=== PATIENT | male | born 1955 | race Caucasian/White ===

== ENCOUNTER 2018-03-08 18:31 | Inpatient (IN) | payer OTHER ==
[2018-03-08] MEDS ORDERED: SODIUM CHLORIDE 0.9% 1,000 ML IV STA (18:38)
[2018-03-08 18:59] LABS: Basophils # (A) 0.1 k/uL (0-0.2); Basophils % (A) 1 %; Eosinophils # (A) 0.3 k/uL (0-0.7); Eosinophils % (A) 3 %; HCT 38.3 % (39.0-53.0); Lymphocytes # (A) 3.8 k/uL (1.0-4.8); Lymphocytes % (A) 36 %; MCH 31.1 pg (25.0-35.0); MCHC 33.8 g/dL (31.0-37.0); Mean Platelet Volume 6.8; Monocytes # (A) 0.8 k/uL (0-1.0); Monocytes % (A) 7 %; Neutrophils # (A) 5.3 k/uL (1.3-7.7); Neutrophils % (A) 50 %; Platelet Count 291 k/uL (150-450); RBC 4.17 m/uL (4.30-5.90); RDW 12.8 % (11.5-15.5); WBC 10.7 k/uL (3.8-10.6)
--- NOTE | 2018-03-08 19:01 | CT ---
EXAMINATION TYPE: CT brain wo con for TPA DATE OF EXAM: 03/08/2018 COMPARISON: None HISTORY: Left sided numbness earlier today. CT DLP: 866.3 mGycm Automated exposure control for dose reduction was used. FINDINGS: Ventricles and sulci appear normal. There is no mass effect nor midline shift. There is no sign of in tracranial hemorrhage. Calvarium is intact. There is mucosal thickening in the ethmoid air cells. IMPRESSION: NEGATIVE CT SCAN OF THE BRAIN. MILD ETHMOID SINUSITIS.
[2018-03-08 19:03] LABS: ALT 19 U/L (21-72); AST 23 U/L (17-59); Alkaline Phosphatase 62 U/L (38-126); Anion Gap 12 mmol/L; Blood Urea Nitrogen 17 mg/dL (9-20); Calcium 8.5 mg/dL (8.4-10.2); Carbon Dioxide 25 mmol/L (22-30); Chloride 97 mmol/L (98-107); Glucose 123 mg/dL (74-99); Potassium 3.7 mmol/L (3.5-5.1); Sodium 134 mmol/L (137-145); Total Bilirubin 0.4 mg/dL (0.2-1.3); Total Protein 6.8 g/dL (6.3-8.2)
[2018-03-08 19:04] LABS: Partial Thromboplastin Time 24.4 sec (22.0-30.0); Prothrombin Time 9.9 sec (9.0-12.0)
--- NOTE | 2018-03-08 19:11 | ED ---
General Adult HPI - General Chief complaint: Neuro Symptoms/Deficit Stated complaint: CVA Symptoms Time Seen by Provider: 03/08/18 18:37 Source: patient, EMS, RN notes reviewed Mode of arrival: EMS Limitations: no limitations - History of Present Illness Initial comments: Patient is a pleasant 62-year-old male presenting to the emergency department with concern for possible stroke. Patient has had some right arm numbness for a couple of days, more so today. Patient did have an episode of right arm weakness the last around 20 minutes earlier. Approximately 5:30 patient did have problems with speech. Patient states his speech has improved however is not white on a percent normal at this time. Patient also had some paresthesias of the right face. No confusion. No facial weakness noted. No leg weakness noted. No history of similar symptoms previously. - Related Data Home Medications Medication Instructions Recorded Confirmed Gabapentin [Neurontin] 300 mg PO TID 03/08/18 03/08/18 Hydrocodone/Acetaminophen [[place] 1 tab PO QID PRN 03/08/18 03/08/18 7.5-325] Lisinopril [Prinivil] 20 mg PO DAILY 03/08/18 03/08/18 Allergies Allergy/AdvReac Type Severity Reaction Status Date / Time No Known Allergies Allergy Verified 03/08/18 20:02 Review of Systems ROS Statement: Those systems with pertinent positive or pertinent negative responses have been documented in the HPI. ROS Other: All systems not noted in ROS Statement are negative. Constitutional: Denies: fever Eyes: Denies: eye pain ENT: Denies: ear pain Respiratory: Denies: cough Cardiovascular: Denies: chest pain Endocrine: Denies: fatigue Gastrointestinal: Denies: abdominal pain Genitourinary: Denies: dysuria Musculoskeletal: Denies: back pain Skin: Denies: rash Neurological: Reports: weakness (Resolved), paresthesias. Denies: confusion Past Medical History Past Medical History: Hypertension History of Any Multi-Drug Resistant Organisms: None Reported Past Surgical History: Hernia Repair Past Psychological History: No Psychological Hx Reported Smoking Status: Heavy tobacco smoker Past Alcohol Use History: Rare Past Drug Use History: None Reported General Exam Limitations: no limitations General appearance: alert, in no apparent distress Head exam: Present: atraumatic Eye exam: Present: normal appearance, PERRL, EOMI. Absent: nystagmus ENT exam: Present: normal oropharynx Neck exam: Present: normal inspection Respiratory exam: Present: normal lung sounds bilaterally Cardiovascular Exam: Present: regular rate, normal rhythm GI/Abdominal exam: Present: soft. Absent: tenderness Extremities exam: Present: normal inspection. Absent: pedal edema, calf tenderness Neurological exam: Present: alert, oriented X3, CN II-XII intact, other ( Minimal amount of slurred speech is noted). Absent: motor sensory deficit Expanded Neurological exam: Present: protecting the airway Patient oriented to: Present: person, place, time Speech: Present: fluid speech Cranial nerves: EOM's Intact: Normal, Facial Sensation: Normal Sensory exam: Upper Extremity Light Touch: Normal, Lower Extremity Light Touch: Normal Motor strength exam: RUE: 5, LUE: 5, RLE: 5, LLE: 5 Eye Response: (4) open spontaneously Motor Response: (6) obeys commands Verbal Response: (5) oriented Psychiatric exam: Present: normal affect, normal mood Skin exam: Present: normal color Course Vital Signs 03/08/18 03/08/18 03/08/18 18:31 18:45 19:00 Temperature Pulse Rate 98 84 76 Respiratory 16 16 16 Rate Blood Pressure 174/94 178/92 180/90 O2 Sat by Pulse 96 97 96 Oximetry 03/08/18 03/08/18 03/08/18 19:15 19:30 19:45 Temperature Pulse Rate 74 69 77 Respiratory 16 16 18 Rate Blood Pressure 185/82 185/82 185/78 O2 Sat by Pulse 99 98 98 Oximetry 03/08/18 03/08/18 20:00 20:30 Temperature 97.8 F Pulse Rate 84 85 Respiratory 16 16 Rate Blood Pressure 148/82 160/78 O2 Sat by Pulse 98 98 Oximetry EKG Findings - EKG Comments: EKG Findings:: Normal sinus rhythm 79. [place] 154. QRS 98. QT 412. QTC 472. Normal axis. Normal QRS. No acute ST change. Medical Decision Making - Medical Decision Making Neural interventional list had called back and spoke with nurse previously who recommended patient not have TPA which I do agree with secondary to symptoms essentially resolved except for questionable minimal speech problem. She did recommend aspirin and Lipitor. I did have nurse call him back again to review CTA. Case was discussed with Dr. Dela Cruz, who will admit for hospital call. - Lab Data Result diagrams: 03/08/18 18:35 03/08/18 18:35 Lab Results 03/08/18 03/08/18 03/08/18 Range/Units 18:35 18:35 18:35 WBC 10.7 H (3.8-10.6) k/uL RBC 4.17 L (4.30-5.90) m/uL Hgb 13.0 (13.0-17.5) gm/dL Hct 38.3 L (39.0-53.0) % MCV 92.0 (80.0-100.0) fL MCH 31.1 (25.0-35.0) pg MCHC 33.8 (31.0-37.0) g/dL RDW 12.8 (11.5-15.5) % Plt Count 291 (150-450) k/uL Neutrophils % 50 % Lymphocytes % 36 % Monocytes % 7 % Eosinophils % 3 % Basophils % 1 % Neutrophils # 5.3 (1.3-7.7) k/uL Lymphocytes # 3.8 (1.0-4.8) k/uL Monocytes # 0.8 (0-1.0) k/uL Eosinophils # 0.3 (0-0.7) k/uL Basophils # 0.1 (0-0.2) k/uL PT (9.0-12.0) sec INR (<1.2) APTT (22.0-30.0) sec Sodium 134 L (137-145) mmol/L Potassium 3.7 (3.5-5.1) mmol/L Chloride 97 L (98-107) mmol/L Carbon Dioxide 25 (22-30) mmol/L Anion Gap 12 mmol/L BUN 17 (9-20) mg/dL Creatinine 0.78 (0.66-1.25) mg/dL Est GFR (CKD-EPI)AfAm >90 (>60 ml/min/1.73 sqM) Est GFR (CKD-EPI)NonAf >90 (>60 ml/min/1.73 sqM) Glucose 123 H (74-99) mg/dL Calcium 8.5 (8.4-10.2) mg/dL Total Bilirubin 0.4 (0.2-1.3) mg/dL AST 23 (17-59) U/L ALT 19 L (21-72) U/L Alkaline Phosphatase 62 (38-126) U/L Total Creatine Kinase 97 (55-170) U/L CK-MB (CK-2) 1.3 (0.0-2.4) ng/mL CK-MB (CK-2) Rel Index 1.3 Troponin I <0.012 (0.000-0.034) ng/mL Total Protein 6.8 (6.3-8.2) g/dL Albumin 4.0 (3.5-5.0) g/dL 03/08/18 Range/Units 18:35 WBC (3.8-10.6) k/uL RBC (4.30-5.90) m/uL Hgb (13.0-17.5) gm/dL Hct (39.0-53.0) % MCV (80.0-100.0) fL MCH (25.0-35.0) pg MCHC (31.0-37.0) g/dL RDW (11.5-15.5) % Plt Count (150-450) k/uL Neutrophils % % Lymphocytes % % Monocytes % % Eosinophils % % Basophils % % Neutrophils # (1.3-7.7) k/uL Lymphocytes # (1.0-4.8) k/uL Monocytes # (0-1.0) k/uL Eosinophils # (0-0.7) k/uL Basophils # (0-0.2) k/uL PT 9.9 (9.0-12.0) sec INR 1.0 (<1.2) APTT 24.4 (22.0-30.0) sec Sodium (137-145) mmol/L Potassium (3.5-5.1) mmol/L Chloride (98-107) mmol/L Carbon Dioxide (22-30) mmol/L Anion Gap mmol/L BUN (9-20) mg/dL Creatinine (0.66-1.25) mg/dL Est GFR (CKD-EPI)AfAm (>60 ml/min/1.73 sqM) Est GFR (CKD-EPI)NonAf (>60 ml/min/1.73 sqM) Glucose (74-99) mg/dL Calcium (8.4-10.2) mg/dL Total Bilirubin (0.2-1.3) mg/dL AST (17-59) U/L ALT (21-72) U/L Alkaline Phosphatase (38-126) U/L Total Creatine Kinase (55-170) U/L CK-MB (CK-2) (0.0-2.4) ng/mL CK-MB (CK-2) Rel Index Troponin I (0.000-0.034) ng/mL Total Protein (6.3-8.2) g/dL Albumin (3.5-5.0) g/dL - Radiology Data Radiology results: report reviewed (Computed tomography scan of the brain shows no acute process. CT angios does have some concern for occlusion of the internal carotid arteries bilaterally also right common carotid artery. There is some low present, apparently from vertebral basilar artery system. Large collection of vessels left posterior parietal lobe consistent with AV malformation.), image reviewed (Chest x-ray shows mild fibrosis.) Disposition Clinical Impression: Cerebrovascular accident Disposition: ADMITTED IP TO THIS [facility] Condition: Serious Is patient prescribed a controlled substance at d/c from ED?: No Referrals: Nonstaff,Physician [REFERRING] - 1-2 days Decision Time: 20:56
[2018-03-08 19:16] LABS: Creatine Kinase 97 U/L (55-170)
--- NOTE | 2018-03-08 19:28 | CT ---
EXAMINATION TYPE: CT angio head neck DATE OF EXAM: 03/08/2018 HISTORY: Left side numbness. COMPARISON: None CT DLP: 251.3 mGycm. Automated Exposure Control for Dose Reduction was Utilized. TECHNIQUE: CTA scan of the neck is performed with IV Contrast, patient injected with 65ml mL of Isov ue 370, axial images are obtained, coronal and sagittal reformatted images are reviewed. Three-D enrique nstructed images are created on an independent workstation and reviewed. FINDINGS: There is normal branching pattern of the great vessels on the aortic arch. There is complete occlusio n of the right common carotid artery at its origin. There is arterial flow in the left common carotid artery. There is complete occlusion of the left int ernal carotid artery at its origin. There is arterial contrast opacification of the external carotid arteries bilaterally. There is arterial flow in the distal intracranial internal carotid arteries. Th ere is arterial flow in both vertebral arteries and the basilar artery. I see no flow in the distal r ight internal carotid artery. There is very little contrast in the distal left internal carotid arter y. This is probably filling in retrograde fashion. There is arterial flow in the anterior middle and posterior cerebral arteries bilaterally. There is a rterial flow in the vertebrobasilar artery system. There appears to be bilateral arterial flow in the posterior communicating arteries. There is normal contrast opacification of the venous sinuses. There are multiple serpiginous vessels in the left posterior parietal lobe. This abnormality measures 7 x 3 cm. 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 There is arterial flow intracranially apparently from the vertebrobasilar artery system o nly and through the posterior communicating arteries. Atherosclerotic vascular disease. There is a large collection of serpiginous vessels in the left posterior parietal lobe consistent wit h large arterial venous malformation. IMPRESSION: No significant abnormality is seen.
[2018-03-08 19:30] LABS: Creatine Kinase MB 1.3 ng/mL (0.0-2.4); Troponin I <0.012 ng/mL (0.000-0.034)
--- NOTE | 2018-03-08 19:57 | XR ---
EXAMINATION TYPE: XR chest 1V portable DATE OF EXAM: 03/08/2018 COMPARISON: NONE HISTORY: Numbness and tingling TECHNIQUE: Single frontal view of the chest is obtained. FINDINGS: There is no heart failure nor confluent pneumonic infiltrate. Costophrenic angles are yoan r. There are chest leads. Thoracic aorta is atheromatous. There is slight coarsening of interstitial markings. IMPRESSION: Mild pulmonary fibrosis. Normal heart.
[2018-03-08] MEDS ORDERED: ASPIRIN 81 MG PO STA (20:37)
[2018-03-08] MEDS ORDERED: ATORVASTATIN 80 MG TAB PO STA (20:38)
[2018-03-08] MEDS ORDERED: ASPIRIN 325 MG TAB PO STA (20:57)
[2018-03-08] MEDS ORDERED: SODIUM CHLORIDE 0.9% 1,000 ML IV SCH (21:00)
[2018-03-08 22:54] VITALS: BMI 22.6
[2018-03-09] MEDS ORDERED: levETIRAcetam 500 MG TAB PO STA (00:22)
[2018-03-09 00:39] VITALS: RESP 18
[2018-03-09 00:48] VITALS: BP 167/78; PULSE 67; TEMP 97.9
[2018-03-09] MEDS ORDERED: levETIRAcetam 500 MG TAB PO SCH (09:00)
[2018-03-09] MEDS ORDERED: ASPIRIN 325 MG TAB PO SCH (12:00)
[2018-03-09] MEDS ORDERED: ATORVASTATIN 80 MG TAB PO SCH (21:00)
--- NOTE | 2018-04-02 22:25 | P.HPIM ---
History of Present Illness H&P Date: 03/08/18 Chief Complaint: Right arm numbness and weakness Patient was admitted to the hospital with complaints of right arm numbness and weakness. CT head is negative. CTA SHOWED COMPLETE RONEL CAROTID OCCLUSION ALONG WITH A LARGE AVM. PT'S NIH AT TIME OF ADMISSION IS A 3. PT HAVING APHASIA, VISUAL DISTURBANCES AND R ARM TINGLING. [facility] INTERVENTIONAL NEUROLOGIST DR. HUMPHREY WAS NOTIFIED AND HE READ CTA AND ORDERED PT TO BE SENT TO [facility] FOR FURTHER TESTING. PO KEPPRA WAS ORDERED ALONG WITH IV FLUIDS TO KEEP HIS BP BETWEEN 140-200. Past Medical History Past Medical History: Hypertension Additional Past Medical History / Comment(s): CHRONIC BACK PAIN History of Any Multi-Drug Resistant Organisms: None Reported Past Surgical History: Hernia Repair Past Psychological History: No Psychological Hx Reported Smoking Status: Heavy tobacco smoker Past Alcohol Use History: Rare Past Drug Use History: None Reported - Past Family History Mother Family Medical History: No Reported History Father Family Medical History: COPD Medications and Allergies Home Medications Medication Instructions Recorded Confirmed Type Gabapentin [Neurontin] 300 mg PO TID 03/08/18 03/08/18 History Hydrocodone/Acetaminophen [[place] 1 tab PO QID PRN 03/08/18 03/08/18 History 7.5-325] Lisinopril [Prinivil] 20 mg PO DAILY 03/08/18 03/08/18 History Allergies Allergy/AdvReac Type Severity Reaction Status Date / Time No Known Allergies Allergy Verified 03/08/18 20:02 Results CBC & Chem 7: 03/08/18 18:35 03/08/18 18:35 Thrombosis Risk Factor Assmnt - Choose All That Apply Each Risk Factor Represents 2 Points: Age 61-74 years Each Risk Factor Represents 5 Points: Stroke (< 1 month) Thrombosis Risk Factor Assessment Total Risk Factor Score: 7 Thrombosis Risk Factor Assessment Level: High Risk
--- NOTE | 2018-04-02 22:25 | P.DS ---
Providers Date of admission: 03/08/18 20:57 Expected date of discharge: 03/09/18 Attending physician: Eryn Dela Cruz Consults: 03/08/18 20:58 Consult Physician Urgent Consulting Provider: Mary Hodgson Consult Reason/Comments: cva Do you want consulting provider notified?: Yes Primary care physician: Nereyda Colunga [facility] Course: Patient was admitted to the hospital with complaints of right arm numbness and weakness. CT head is negative. CTA SHOWED COMPLETE RONEL CAROTID OCCLUSION ALONG WITH A LARGE AVM. PT'S NIH AT TIME OF ADMISSION IS A 3. PT HAVING APHASIA, VISUAL DISTURBANCES AND R ARM TINGLING. [facility] INTERVENTIONAL NEUROLOGIST DR. HUMPHREY WAS NOTIFIED AND HE READ CTA AND ORDERED PT TO BE SENT TO [facility] FOR FURTHER TESTING. PO KEPPRA WAS ORDERED ALONG WITH IV FLUIDS TO KEEP HIS BP BETWEEN 140-200. Patient Condition at Discharge: Serious Plan - Discharge Summary New Discharge Prescriptions: No Action Gabapentin [Neurontin] 300 mg PO TID Lisinopril [Prinivil] 20 mg PO DAILY Hydrocodone/Acetaminophen [[place] 7.5-325] 1 tab PO QID PRN PRN Reason: Pain Discharge Medication List Gabapentin [Neurontin] 300 mg PO TID 03/08/18 [History] Hydrocodone/Acetaminophen [[place] 7.5-325] 1 tab PO QID PRN 03/08/18 [History] Lisinopril [Prinivil] 20 mg PO DAILY 03/08/18 [History] Follow up Appointment(s)/Referral(s): Nonstaff,Physician [REFERRING] - 1-2 days Discharge Disposition: TRANSFER TO SHORT TERM HOSP
== END 2018-03-09 05:56 | disposition short-term general hospital (02) | DRG 67 ==
LOC: EC 18:31 → 6SEL 20:57
PROVIDERS: ADMIT Internal Medicine; ATTEND Internal Medicine
DX: I65.23 Occlusion and stenosis of bilateral carotid arteries (principal); Q28.2 Arteriovenous malformation of cerebral vessels; R40.2362 Coma scale, best motor response, obeys commands, at arrival to emergency department; R40.2142 Coma scale, eyes open, spontaneous, at arrival to emergency department; R40.2252 Coma scale, best verbal response, oriented, at arrival to emergency department; F17.210 Nicotine dependence, cigarettes, uncomplicated; I10 Essential (primary) hypertension; I69.931 Monoplegia of upper limb following unspecified cerebrovascular disease affecting right dominant side; R47.9 Unspecified speech disturbances
CPT/HCPCS: 36415; 70450; 70496; 70498; 71045; 80053; 82550; 82553; 84484; 85025; 85610; 85730; 93005; 96360; 96361; 99285

== ENCOUNTER 2018-04-15 22:48 | Emergency (ER) | payer OTHER ==
[2018-04-15] MEDS ORDERED: SODIUM CHLORIDE 0.9% 1,000 ML IV STA (23:20)
[2018-04-15 23:30] LABS: Basophils # (A) 0.1 k/uL (0-0.2); Basophils % (A) 0 %; Eosinophils # (A) 0.3 k/uL (0-0.7); Eosinophils % (A) 2 %; HCT 41.2 % (39.0-53.0); HGB 13.6 gm/dL (13.0-17.5); Lymphocytes % (A) 29 %; MCH 31.2 pg (25.0-35.0); MCHC 33.1 g/dL (31.0-37.0); MCV 94.5 fL (80.0-100.0); Mean Platelet Volume 7.3; Monocytes # (A) 0.7 k/uL (0-1.0); Monocytes % (A) 5 %; Neutrophils # (A) 8.3 k/uL (1.3-7.7); Neutrophils % (A) 61 %; Platelet Count 279 k/uL (150-450); RBC 4.36 m/uL (4.30-5.90); RDW 12.8 % (11.5-15.5); WBC 13.7 k/uL (3.8-10.6)
[2018-04-15 23:40] LABS: ALT 19 U/L (21-72); AST 20 U/L (17-59); Albumin 4.6 g/dL (3.5-5.0); Alkaline Phosphatase 57 U/L (38-126); Anion Gap 10 mmol/L; Blood Urea Nitrogen 14 mg/dL (9-20); Calcium 9.6 mg/dL (8.4-10.2); Carbon Dioxide 26 mmol/L (22-30); Chloride 104 mmol/L (98-107); Glucose 127 mg/dL (74-99); Potassium 3.8 mmol/L (3.5-5.1); Sodium 140 mmol/L (137-145); Total Bilirubin 0.2 mg/dL (0.2-1.3); Total Protein 7.6 g/dL (6.3-8.2)
--- NOTE | 2018-04-15 23:53 | XR ---
EXAMINATION TYPE: XR chest 2V DATE OF EXAM: 04/15/2018 COMPARISON: 03/08/2018 HISTORY: Altered mental status TECHNIQUE: Frontal and lateral views of the chest are obtained. FINDINGS: Heart and mediastinum are within normal limits. Lungs are clear of infiltrate. Diaphragm i s normal. There are chest leads. Bony thorax is intact. Pulmonary vascularity is normal. IMPRESSION: No active cardiopulmonary disease. Normal heart. There is clearing of mild interstitial infiltrates in the lower lobes compared to last exam.
[2018-04-16 00:09] LABS: Partial Thromboplastin Time 24.7 sec (22.0-30.0); Prothrombin Time 10.1 sec (9.0-12.0)
--- NOTE | 2018-04-16 00:11 | CT ---
EXAMINATION TYPE: CT brain wo con DATE OF EXAM: 04/16/2018 COMPARISON: 03/08/[address] scan of the brain. HISTORY: neuro deficits CT DLP: 1100 mGycm Automated exposure control for dose reduction was used. FINDINGS: There is some minimal punctate calcification in the left posterior parietal lobe consistent with moncho rial venous vascular malformation. There are a few prominent serpiginous type densities in the left p osterior parietal lobe convexity consistent with vascular malformation. There is no midline shift. Th ere is no sign of intracranial hemorrhage. 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 NO CHANGE COMPARED TO LAST EXAM. NO EVIDENCE OF CORTICAL INFARCT.
--- NOTE | 2018-04-16 00:22 | CT ---
EXAMINATION TYPE: CT angio head neck DATE OF EXAM: 04/16/2018 HISTORY: neuro deficits COMPARISON: 03/08/2018 CT DLP: 432.9 mGycm. Automated Exposure Control for Dose Reduction was Utilized. TECHNIQUE: CTA scan of the neck is performed with IV Contrast, patient injected with 65mL mL of Isov ue 370, axial images are obtained, coronal and sagittal reformatted images are reviewed. Three-D enrique nstructed images are created on an independent workstation and reviewed. FINDINGS: There is normal branching pattern of the great vessels on the aortic arch. There is bilateral arteria l flow in the vertebral arteries which are symmetric. There is arterial flow in the vertebrobasilar a rtery system. There is arterial flow in the left common carotid artery and the bifurcation. There is complete occlu panda proximal left internal carotid artery at the bifurcation. There is patency of the left external carotid artery. There is arterial flow in the right external carotid artery. I do not see any signifi cant flow in the right common carotid artery. There is no evidence of arterial flow in the entire rig ht internal carotid artery. There is arterial flow in the posterior communicating arteries bilaterall y. There is a 7 x 3 X 3 cm area of tortuous vessels at the left posterior parietal lobe convexity con sistent with large arteriovenous malformation. There is no midline shift. There is no sign of intracr anial hemorrhage. There is no evidence of intracranial arterial stenosis. There is no arterial flow d emonstrated in the intracranial internal carotid arteries. There is arterial flow in the anterior middle and posterior cerebral arteries. The left middle cerebral artery is larger than the right and consistent with increased flow due to th e vascular malformation. 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 There is bilateral occlusions of the internal carotid arteries. The anterior middle and posterior cer ebral arteries fill entirely through the vertebrobasilar artery system. This appears unchanged compar ed to old exam..
--- NOTE | 2018-04-16 01:11 | ED ---
General Adult HPI - General Chief complaint: Neuro Symptoms/Deficit Stated complaint: Numbness/Hypertension Time Seen by Provider: 04/15/18 23:02 Source: patient, family Mode of arrival: ambulatory Limitations: no limitations - History of Present Illness Initial comments: Patient is a 62-year-old male presenting for right arm numbness. Patient states that approximately one month ago, he was diagnosed with the AVM and at that time, he had right arm numbness which radiated all the way up to his neck and he had some vision changes. He states that 1.5 hours prior to arrival, he had some hand numbness on the right hand specifically on digits 3 through 5 and on the backside of his hand. He states that the symptoms resolved and at that time, he was also hypertensive at 202/90. He admitted to some palpitations but denied any headache or vision changes. He states that all his symptoms have resolved but he is very concerned because he was supposed to follow-up with [facility] after being transferred to the [facility]. He has been unable to do so secondary to [facility] problems [facility] - Related Data Home Medications Medication Instructions Recorded Confirmed Gabapentin [Neurontin] 300 mg PO TID 03/08/18 03/08/18 Hydrocodone/Acetaminophen [[place] 1 tab PO QID PRN 03/08/18 03/08/18 7.5-325] Lisinopril [Prinivil] 20 mg PO DAILY 03/08/18 03/08/18 Allergies Allergy/AdvReac Type Severity Reaction Status Date / Time No Known Allergies Allergy Verified 04/15/18 23:07 Review of Systems ROS Statement: Those systems with pertinent positive or pertinent negative responses have been documented in the HPI. Constitutional: Negative for chills, fatigue and fever. HENT: Negative for congestion. Respiratory: Negative for chest tightness, shortness of breath and wheezing. Negative for cough Cardiovascular: Negative for chest pain and positive for palpitations. Gastrointestinal: Negative for abdominal pain. Negative for abdominal distention , diarrhea, nausea and vomiting. Genitourinary: Negative for dysuria. Musculoskeletal: Negative for back pain, neck pain and neck stiffness. Skin: Negative for color change. Neurological: Negative for dizziness, speech difficulty, weakness and light- headedness. Positive for right hand numbness Psychiatric/Behavioral: Negative for agitation and confusion. Negative for anxiety ROS Other: All systems not noted in ROS Statement are negative. Past Medical History Past Medical History: CVA/TIA, Hypertension Additional Past Medical History / Comment(s): CHRONIC BACK PAIN History of Any Multi-Drug Resistant Organisms: None Reported Past Surgical History: Hernia Repair Past Psychological History: No Psychological Hx Reported Smoking Status: Heavy tobacco smoker Past Alcohol Use History: Rare Past Drug Use History: None Reported - Past Family History Mother Family Medical History: No Reported History Father Family Medical History: COPD General Exam - General Exam Comments Initial Comments: Constitutional: Pt is oriented to person, place, and time. Pt appears well- developed and well-nourished. No distress. HENT: Head: Normocephalic and atraumatic. Eyes: EOM are normal. Pupils 3 mm bilaterally and reactive. Neck: Normal range of motion. Neck supple. Cardiovascular: Normal rate, regular rhythm, S1 normal, S2 normal and normal heart sounds. Exam reveals no gallop and no friction rub. No murmur heard. Pulmonary/Chest: Effort normal and breath sounds normal. No tachypnea and no bradypnea. No respiratory distress. No wheezes or rales noted. Abdominal: Soft. Bowel sounds are normal. Pt exhibits no shifting dullness, no distension, no pulsatile liver, no fluid wave, no abdominal bruit and no ascites. There is no tenderness. There is no rigidity, no rebound, no guarding, no tenderness at McBurney's point and negative Yepez's sign. Musculoskeletal: Normal range of motion. Neurological: Pt is alert and oriented to person, place, and time. No cranial nerve deficit. No neurosensory deficits on the right hand. No signs of ataxia. All strength 5 out of 5 in all extremities. Skin: Skin is warm and dry. No rash noted. Pt is not diaphoretic. No erythema. No pallor. Psychiatric: Pt has a normal mood and affect. Pt behavior is normal. Thought content normal. Limitations: no limitations Course Vital Signs 04/15/18 04/16/18 22:55 00:03 Temperature 98.5 F Pulse Rate 80 68 Respiratory 18 16 Rate Blood Pressure 186/84 159/91 O2 Sat by Pulse 96 97 Oximetry EKG Findings - EKG Comments: EKG Findings:: EKG shows sinus rhythm of 70 bpm, WI interval 154, QRS 102, QTC 444 there are no significant ST depressions or elevations. Medical Decision Making - Medical Decision Making Laboratory studies showed that there was mild leukocytosis at 13.7 but there is no obvious source of infection. Electrolytes were relatively within normal limits and from a cardiac standpoint, EKG showed no emergent findings. Troponin was also noted to be negative and CTA was performed and it showed the large left posterior AVM as well as bilateral internal carotid occlusions both of which were present for roughly 1 month ago. Case is discussed with neurology and it was recommended that the patient be transferred to an outside facility for escalation of care as we do not have vascular surgeons and house that could intervene if emergent situation occurred overnight. Because the patient was ultimately referred to [facility] from the [facility], it was advised to the patient that he should go by EMS to this facility which have the subspecialist needed. Patient was agreeable to plan and case was discussed with [facility] physician, Dr. Doherty, who accepted the patient transfer. At the time of disposition, the patient was not hypertensive and had no neurologic symptoms. - Lab Data Result diagrams: 04/15/18 23:01 04/15/18 23:01 Lab Results 04/15/18 04/15/18 04/15/18 Range/Units 23:01 23:01 23:01 WBC 13.7 H (3.8-10.6) k/uL RBC 4.36 (4.30-5.90) m/uL Hgb 13.6 (13.0-17.5) gm/dL Hct 41.2 (39.0-53.0) % MCV 94.5 (80.0-100.0) fL MCH 31.2 (25.0-35.0) pg MCHC 33.1 (31.0-37.0) g/dL RDW 12.8 (11.5-15.5) % Plt Count 279 (150-450) k/uL Neutrophils % 61 % Lymphocytes % 29 % Monocytes % 5 % Eosinophils % 2 % Basophils % 0 % Neutrophils # 8.3 H (1.3-7.7) k/uL Lymphocytes # 4.0 (1.0-4.8) k/uL Monocytes # 0.7 (0-1.0) k/uL Eosinophils # 0.3 (0-0.7) k/uL Basophils # 0.1 (0-0.2) k/uL PT 10.1 (9.0-12.0) sec INR 1.0 (<1.2) APTT 24.7 (22.0-30.0) sec Sodium 140 (137-145) mmol/L Potassium 3.8 (3.5-5.1) mmol/L Chloride 104 (98-107) mmol/L Carbon Dioxide 26 (22-30) mmol/L Anion Gap 10 mmol/L BUN 14 (9-20) mg/dL Creatinine 0.65 L (0.66-1.25) mg/dL Est GFR (CKD-EPI)AfAm >90 (>60 ml/min/1.73 sqM) Est GFR (CKD-EPI)NonAf >90 (>60 ml/min/1.73 sqM) Glucose 127 H (74-99) mg/dL Calcium 9.6 (8.4-10.2) mg/dL Total Bilirubin 0.2 (0.2-1.3) mg/dL AST 20 (17-59) U/L ALT 19 L (21-72) U/L Alkaline Phosphatase 57 (38-126) U/L Troponin I (0.000-0.034) ng/mL Total Protein 7.6 (6.3-8.2) g/dL Albumin 4.6 (3.5-5.0) g/dL 04/15/ Range/Units 23:01 WBC (3.8-10.6) k/uL RBC (4.30-5.90) m/uL Hgb (13.0-17.5) gm/dL Hct (39.0-53.0) % MCV (80.0-100.0) fL MCH (25.0-35.0) pg MCHC (31.0-37.0) g/dL RDW (11.5-15.5) % Plt Count (150-450) k/uL Neutrophils % % Lymphocytes % % Monocytes % % Eosinophils % % Basophils % % Neutrophils # (1.3-7.7) k/uL Lymphocytes # (1.0-4.8) k/uL Monocytes # (0-1.0) k/uL Eosinophils # (0-0.7) k/uL Basophils # (0-0.2) k/uL PT (9.0-12.0) sec INR (<1.2) APTT (22.0-30.0) sec Sodium (137-145) mmol/L Potassium (3.5-5.1) mmol/L Chloride (98-107) mmol/L Carbon Dioxide (22-30) mmol/L Anion Gap mmol/L BUN (9-20) mg/dL Creatinine (0.66-1.25) mg/dL Est GFR (CKD-EPI)AfAm (>60 ml/min/1.73 sqM) Est GFR (CKD-EPI)NonAf (>60 ml/min/1.73 sqM) Glucose (74-99) mg/dL Calcium (8.4-10.2) mg/dL Total Bilirubin (0.2-1.3) mg/dL AST (17-59) U/L ALT (21-72) U/L Alkaline Phosphatase (38-126) U/L Troponin I <0.012 (0.000-0.034) ng/mL Total Protein (6.3-8.2) g/dL Albumin (3.5-5.0) g/dL Disposition Clinical Impression: Numbness of right hand, AVM (arteriovenous malformation) brain, Occlusion of both internal carotid arteries Disposition: OTHER INSTITUTION NOT DEFINED Condition: Good Instructions: Stroke (DC) Referrals: Nereyda Colunga MD [Primary Care Provider] - 1-2 days Time of Disposition: 01:25 - Out of Hospital Transfer - Req. Specs Out of Hospital Transfer - Requested Specifics: Other Emergency Center ( [facility])
[2018-04-16 01:15] VITALS: BP 165/92; PULSE 84; RESP 18; TEMP 98.2
== END 2018-04-16 01:59 | disposition other institution (70) ==
LOC: EC 22:48
DX: Q28.2 Arteriovenous malformation of cerebral vessels (principal); I65.23 Occlusion and stenosis of bilateral carotid arteries; R00.2 Palpitations; D72.829 Elevated white blood cell count, unspecified; I10 Essential (primary) hypertension; F17.200 Nicotine dependence, unspecified, uncomplicated; Z86.73 Personal history of transient ischemic attack (TIA), and cerebral infarction without residual deficits; Z79.899 Other long term (current) drug therapy
CPT/HCPCS: 36415; 93005; 80053; 84484; 85025; 85610; 85730; 71046; 70496; 70450; 70498; 99285; 96360; 96361; Q9967

== ENCOUNTER 2023-09-11 14:49 | Emergency (ER) | payer OTHER ==
[2023-09-11] MEDS: SODIUM CHLORIDE 0.9% 1,000 ML IV STA (15:12)
--- NOTE | 2023-09-11 15:18 | ED ---
General Adult HPI - General Chief complaint: Syncope Stated complaint: Syncope Time Seen by Provider: 09/11/23 14:54 Source: patient, EMS, RN notes reviewed, old records reviewed Mode of arrival: EMS Limitations: no limitations - History of Present Illness Initial comments: 68-year-old male presenting with syncopal episode. Patient was at the [employer] store, when he began to feel lightheaded and diaphoretic, passed out. A employee had caught him before he fell. He does admit that he did not eat breakfast or lunch today. He was working on his car. He had no preceding chest pain or dyspnea. No vomiting or diarrhea. He has no symptoms at the time my evaluation. - Related Data Home Medications Medication Instructions Recorded Confirmed Gabapentin [Neurontin] 300 mg PO TID 03/08/18 03/08/18 Hydrocodone/Acetaminophen [[place] 1 tab PO QID PRN 03/08/18 03/08/18 7.5-325] lisinopriL [Prinivil] 20 mg PO DAILY 03/08/18 03/08/18 Allergies Allergy/AdvReac Type Severity Reaction Status Date / Time No Known Allergies Allergy Verified 09/11/23 14:59 Review of Systems ROS Statement: Those systems with pertinent positive or pertinent negative responses have been documented in the HPI. ROS Other: All systems not noted in ROS Statement are negative. Past Medical History Past Medical History: CVA/TIA, Hypertension Additional Past Medical History / Comment(s): CHRONIC BACK PAIN History of Any Multi-Drug Resistant Organisms: None Reported Past Surgical History: Hernia Repair Past Psychological History: No Psychological Hx Reported Smoking Status: Current every day smoker Past Alcohol Use History: Rare Past Drug Use History: None Reported - Past Family History Mother Family Medical History: No Reported History Father Family Medical History: COPD General Exam Limitations: no limitations General appearance: alert, in no apparent distress Head exam: Present: atraumatic, normocephalic Eye exam: Present: normal appearance, PERRL ENT exam: Present: normal exam Neck exam: Present: normal inspection. Absent: tenderness, meningismus Respiratory exam: Present: normal lung sounds bilaterally. Absent: respiratory distress, wheezes Cardiovascular Exam: Present: regular rate, normal rhythm GI/Abdominal exam: Present: soft. Absent: distended, tenderness, guarding Extremities exam: Present: normal inspection, normal capillary refill Neurological exam: Present: alert, oriented X3, CN II-XII intact. Absent: motor sensory deficit Psychiatric exam: Present: normal affect, normal mood Skin exam: Present: warm, dry, intact, normal color. Absent: cyanosis, diaphoretic Course Vital Signs 09/11/23 09/11/23 14:54 15:13 Temperature 97.5 F L Pulse Rate 70 Respiratory 18 Rate Blood Pressure 94/58 Blood Pressure 117/66 [Sitting] Blood Pressure 102/66 [Standing] Blood Pressure 110/51 [Supine] O2 Sat by Pulse 98 Oximetry Medical Decision Making - Medical Decision Making Was pt. sent in by a medical professional or institution (, PA, WOOD FURNITURE ASSEMBLER, urgent care, hospital, or assisted...) When possible be specific @ -[No] Did you speak to anyone other than the patient for history (EMS, parent, family, police, friend...)? What history was obtained from this source @ -[No] Did you review nursing and triage notes (agree or disagree)? Why? @ -[I reviewed and agree with nursing and triage notes] Were old charts reviewed (outside hosp., previous admission, EMS record, old EKG, old radiological studies, urgent care reports/EKG's, assisted records)? Report findings @ -[No old charts were reviewed] Differential Diagnosis differential Syncope: Valvular disease, hypertrophic cardiomyopathy, pulmonary embolism, tamponade, tachycardia, bradycardia, PA, hypovolemia, hemorrhage, dissection, anemia, intr acranial hemorrhage, seizure, hypoglycemia, carbon monoxide poisoning, this is not meant to be an all-inclusive list. EKG interpreted by me (3pts min.). @ -Sinus rhythm with frequent PVC rate of 74, WV interval 144, QRS duration 98, QTc [address] segment elevation. X-rays interpreted by me (1pt min.). @ -Chest x-ray negative for acute cardiopulmonary findings CT interpreted by me (1pt min.). @ -[None done] U/S interpreted by me (1pt. min.). @ -[None done] What testing was considered but not performed or refused? (CT, X-rays, U/S, labs)? Why? @ -[None] What meds were considered but not given or refused? Why? @ -[None] Did you discuss the management of the patient with other professionals (professionals i.e. , PA, WOOD FURNITURE ASSEMBLER, lab, RT, psych nurse, director social welfare, manager roofing, teacher, natural resource officer, telehealth case manager)? Give summary @ -[No] Was smoking cessation discussed for >3mins.? @ -[No] Was critical care preformed (if so, how long)? @ -[No] Were there social determinants of health that impacted care today? How? (Homelessness, low income, unemployed, alcoholism, drug addiction, transpor tation, low edu. Level, literacy, decrease access to med. care, fpc, rehab)? @ -[No] Was there de-escalation of care discussed even if they declined (Discuss DNR or withdrawal of care, Hospice)? DNR status @ -[No] What co-morbidities impacted this encounter? (DM, HTN, Smoking, COPD, CAD, Cancer, CVA, ARF, Chemo, Hep., AIDS, mental health diagnosis, sleep apnea, morbid obesity)? @ -[None] Was patient admitted / discharged? Hospital course, mention meds given and route, prescriptions, significant lab abnormalities, going to OR and other pertinent info. @ -68-year-old male with syncopal episode. Patient was asymptomatic upon arrival. He does admit to not eating today and presented at approximately 3 PM. Patient is in sinus rhythm. Chest x-ray clear. He has some mild anemia without recent hemoglobin for comparison. Patient denies symptoms of bleeding including no melena, or bright red rectal bleeding. patient has potassium 3.3 otherwise normal electrolytes. Given 1 L of normal saline. Patient remains asymptomatic and is very eager for discharge. He is given strict return pa rameters and will return with any worsening or changing symptoms Undiagnosed new problem with uncertain prognosis? @ -[No] Drug Therapy requiring intensive monitoring for toxicity (Heparin, Nitro, In sulin, Cardizem)? @ -[No] Were any procedures done? @ -[No] Diagnosis/symptom? @ -Syncope Acute, or Chronic, or Acute on Chronic? @ -Acute Uncomplicated (without systemic symptoms) or Complicated (systemic symptoms)? @ -[default] Side effects of treatment? @ -[No] Exacerbation, Progression, or Severe Exacerbation? @ -[No] Poses a threat to life or bodily function? How? (Chest pain, USA, PA, pneumonia, PE, COPD, DKA, ARF, appy, cholecystitis, CVA, Diverticulitis, Homicidal, Suicidal, threat to staff... and all critical care pts) @ -Low risk at this time - Lab Data Result diagrams: 09/11/23 15:09 09/11/23 15:09 Lab Results 09/11/23 09/11/23 09/11/23 Range/Units 15:09 15:09 15:09 WBC 10.9 H (3.8-10.6) k/uL RBC 3.41 L (4.30-5.90) m/uL Hgb 10.8 L (13.0-17.5) gm/dL Hct 32.9 L (39.0-53.0) % MCV 96.2 (80.0-100.0) fL MCH 31.5 (25.0-35.0) pg MCHC 32.8 (31.0-37.0) g/dL RDW 14.0 (11.5-15.5) % Plt Count 387 (150-450) k/uL MPV 7.9 Neutrophils % 68 % Lymphocytes % 22 % Monocytes % 6 % Eosinophils % 2 % Basophils % 0 % Neutrophils # 7.4 (1.3-7.7) k/uL Lymphocytes # 2.3 (1.0-4.8) k/uL Monocytes # 0.6 (0-1.0) k/uL Eosinophils # 0.3 (0-0.7) k/uL Basophils # 0.0 (0-0.2) k/uL PT 10.9 (10.0-12.5) sec INR 1.0 (<1.2) APTT 21.6 L (22.0-30.0) sec Sodium 139 (137-145) mmol/L Potassium 3.3 L (3.5-5.1) mmol/L Chloride 109 H (98-107) mmol/L Carbon Dioxide 17 L (22-30) mmol/L Anion Gap 13 mmol/L BUN 16 (9-20) mg/dL Creatinine 1.11 (0.66-1.25) mg/dL Est GFR (CKD-EPI)AfAm 78 (>60 ml/min/1.73 sqM) Est GFR (CKD-EPI)NonAf 68 (>60 ml/min/1.73 sqM) Glucose 124 H (74-99) mg/dL Calcium 8.5 (8.4-10.2) mg/dL Magnesium 1.9 (1.6-2.3) mg/dL Total Bilirubin 0.4 (0.2-1.3) mg/dL AST 18 (17-59) U/L ALT 13 (4-49) U/L Alkaline Phosphatase 67 (38-126) U/L Troponin I (0.000-0.034) ng/mL Total Protein 6.1 L (6.3-8.2) g/dL Albumin 3.5 (3.5-5.0) g/dL 09/11/23 Range/Units 15:09 WBC (3.8-10.6) k/uL RBC (4.30-5.90) m/uL Hgb (13.0-17.5) gm/dL Hct (39.0-53.0) % MCV (80.0-100.0) fL MCH (25.0-35.0) pg MCHC (31.0-37.0) g/dL RDW (11.5-15.5) % Plt Count (150-450) k/uL MPV Neutrophils % % Lymphocytes % % Monocytes % % Eosinophils % % Basophils % % Neutrophils # (1.3-7.7) k/uL Lymphocytes # (1.0-4.8) k/uL Monocytes # (0-1.0) k/uL Eosinophils # (0-0.7) k/uL Basophils # (0-0.2) k/uL PT (10.0-12.5) sec INR (<1.2) APTT (22.0-30.0) sec Sodium (137-145) mmol/L Potassium (3.5-5.1) mmol/L Chloride (98-107) mmol/L Carbon Dioxide (22-30) mmol/L Anion Gap mmol/L BUN (9-20) mg/dL Creatinine (0.66-1.25) mg/dL Est GFR (CKD-EPI)AfAm (>60 ml/min/1.73 sqM) Est GFR (CKD-EPI)NonAf (>60 ml/min/1.73 sqM) Glucose (74-99) mg/dL Calcium (8.4-10.2) mg/dL Magnesium (1.6-2.3) mg/dL Total Bilirubin (0.2-1.3) mg/dL AST (17-59) U/L ALT (4-49) U/L Alkaline Phosphatase (38-126) U/L Troponin I <0.012 (0.000-0.034) ng/mL Total Protein (6.3-8.2) g/dL Albumin (3.5-5.0) g/dL Disposition Clinical Impression: Dehydration, Syncope Disposition: HOME SELF-CARE Condition: Fair Instructions (If sedation given, give patient instructions): Syncope (ED) Is patient prescribed a controlled substance at d/c from ED?: No Referrals: Nereyda Colunga MD [REFERRING] - 1-2 days Time of Disposition: 16:58
[2023-09-11 15:26] LABS: Basophils % (A) 0 %; Eosinophils # (A) 0.3 k/uL (0-0.7); Eosinophils % (A) 2 %; HCT 32.9 % (39.0-53.0); HGB 10.8 gm/dL (13.0-17.5); Lymphocytes # (A) 2.3 k/uL (1.0-4.8); Lymphocytes % (A) 22 %; MCH 31.5 pg (25.0-35.0); MCHC 32.8 g/dL (31.0-37.0); MCV 96.2 fL (80.0-100.0); Mean Platelet Volume 7.9; Monocytes # (A) 0.6 k/uL (0-1.0); Monocytes % (A) 6 %; Neutrophils # (A) 7.4 k/uL (1.3-7.7); Neutrophils % (A) 68 %; Platelet Count 387 k/uL (150-450); RBC 3.41 m/uL (4.30-5.90); WBC 10.9 k/uL (3.8-10.6)
--- NOTE | 2023-09-11 15:28 | XR ---
EXAMINATION TYPE: XR chest 2V DATE OF EXAM: 09/11/2023 3:19 PM CLINICAL INDICATION:Male, 68 years old with history of syncope; [facility] COMPARISON: None. TECHNIQUE: XR chest 2V Frontal and lateral views of the chest. FINDINGS: Lungs/Pleura: There is no evidence of pleural effusion, focal consolidation, or pneumothorax. Pulmonary vascularity: Unremarkable. Heart/mediastinum: Cardiomediastinal silhouette is unremarkable. Musculoskeletal: No acute osseous pathology. IMPRESSION: No acute cardiopulmonary disease/process.
[2023-09-11 15:38] LABS: ALT 13 U/L (4-49); AST 18 U/L (17-59); African American GFR (CKD) 78 (>60 ml/min/1.73 sqM); Albumin 3.5 g/dL (3.5-5.0); Alkaline Phosphatase 67 U/L (38-126); Anion Gap 13 mmol/L; Blood Urea Nitrogen 16 mg/dL (9-20); Calcium 8.5 mg/dL (8.4-10.2); Carbon Dioxide 17 mmol/L (22-30); Chloride 109 mmol/L (98-107); Glucose 124 mg/dL (74-99); Magnesium 1.9 mg/dL (1.6-2.3); Non-African American GFR(CKD) 68 (>60 ml/min/1.73 sqM); Potassium 3.3 mmol/L (3.5-5.1); Sodium 139 mmol/L (137-145); Total Bilirubin 0.4 mg/dL (0.2-1.3); Total Protein 6.1 g/dL (6.3-8.2)
[2023-09-11 15:43] LABS: Prothrombin Time 10.9 sec (10.0-12.5)
[2023-09-11 15:47] LABS: Partial Thromboplastin Time 21.6 sec (22.0-30.0)
[2023-09-11 16:02] VITALS: RESP 18
[2023-09-11 17:22] VITALS: BP 138/76; PULSE 87; TEMP 98.8
== END 2023-09-11 17:11 | disposition home or self-care (01) ==
LOC: EC 14:49
DX: R55 Syncope and collapse (principal); E86.0 Dehydration; D64.9 Anemia, unspecified; F17.200 Nicotine dependence, unspecified, uncomplicated; Z86.73 Personal history of transient ischemic attack (TIA), and cerebral infarction without residual deficits
CPT/HCPCS: 36415; 71046; 80053; 83735; 84484; 85025; 85610; 85730; 93005; 96360; 96361; 99285

== ENCOUNTER 2023-12-21 14:08 | Emergency (ER) | payer OTHER ==
[2023-12-21 14:28] VITALS: BP 121/69; PULSE 102; RESP 18; TEMP 98.1
--- NOTE | 2023-12-21 17:07 | ED ---
General Adult HPI - General Chief complaint: Eye Problems Stated complaint: headaches/vision loss Time Seen by Provider: 12/21/23 16:08 Source: patient Mode of arrival: ambulatory Limitations: no limitations - History of Present Illness Initial comments: 68-year-old male presents emergency department with vision loss. States that he had a stroke in 2014 which affected his left vision. Over the past 4 months the patient has had complete loss of vision in his left eye. Accompanying the vision loss has been headaches over the left side of the head. He states that the pain is sharp and stabbing. The pain is unpredictable. He does take pain medications at home without any improvement. No fevers. No trauma to the eye. No history of glaucoma. He has not seen an criminal psychologist. He was concerned that he is having another stroke and therefore presents emergency department for evaluation. No other alleviating, precipitating or modifying factors - Related Data Home Medications Medication Instructions Recorded Confirmed Hydrocodone/Acetaminophen [[place] 1 tab PO TID PRN 03/08/18 12/21/23 7.5-325] Aspirin 81 - 162 mg PO DAILY 12/21/23 12/21/23 Aspirin 81 - 162 mg PO TID PRN 12/21/23 12/21/23 Atorvastatin Calcium [Lipitor] 80 mg PO HS 12/21/23 12/21/23 Metoprolol Succinate (ER) [Toprol 25 mg PO DAILY 12/21/23 12/21/23 Xl] lisinopriL 40 mg PO DAILY 12/21/23 12/21/23 Allergies Allergy/AdvReac Type Severity Reaction Status Date / Time No Known Allergies Allergy Verified 12/21/23 17:04 Review of Systems ROS Statement: Those systems with pertinent positive or pertinent negative responses have been documented in the HPI. ROS Other: All systems not noted in ROS Statement are negative. Past Medical History Past Medical History: CVA/TIA, Hypertension Additional Past Medical History / Comment(s): CHRONIC BACK PAIN History of Any Multi-Drug Resistant Organisms: None Reported Past Surgical History: Hernia Repair Past Psychological History: No Psychological Hx Reported Smoking Status: Current every day smoker Past Alcohol Use History: Rare Past Drug Use History: None Reported - Past Family History Mother Family Medical History: No Reported History Father Family Medical History: COPD General Exam Limitations: no limitations General appearance: alert, in no apparent distress Head exam: Present: atraumatic, normocephalic, normal inspection Eye exam: Present: other (There is cloudy white discoloration to the left pupil. The pupil is nonreactive. There is conjunctival is slightly injected. Extraocular muscles are intact) ENT exam: Present: normal exam, mucous membranes moist Neck exam: Present: normal inspection. Absent: tenderness, meningismus, lymphadenopathy Respiratory exam: Present: normal lung sounds bilaterally. Absent: respiratory distress, wheezes, rales, rhonchi, stridor Cardiovascular Exam: Present: regular rate, normal rhythm, normal heart sounds. Absent: systolic murmur, diastolic murmur, rubs, gallop, clicks Course Vital Signs 12/21/23 14:24 Temperature 98.1 F Pulse Rate 102 H Respiratory 18 Rate Blood Pressure 121/69 O2 Sat by Pulse 99 Oximetry Medical Decision Making - Medical Decision Making Was pt. sent in by a medical professional or institution (, PA, BIOLOGIST AIDE, urgent care, hospital, or care home...) When possible be specific @ -No Did you speak to anyone other than the patient for history (EMS, parent, family, police, friend...)? What history was obtained from this source @ -No Did you review nursing and triage notes (agree or disagree)? Why? @ -I reviewed and agree with nursing and triage notes Were old charts reviewed (outside hosp., previous admission, EMS record, old EKG, old radiological studies, urgent care reports/EKG's, care home records)? Report findings @ -No old charts were reviewed Differential Diagnosis (chest pain, altered mental status, abdominal pain women, abdominal pain men, vaginal bleeding, weakness, fever, dyspnea, syncope, headache, dizziness, GI bleed, back pain, seizure, CVA, palpatations, mental health, musculoskeletal)? @ -Cataract, infection, acute closed angle glaucoma EKG interpreted by me (3pts min.). @ -yes and demonstrates sinus rhythm with a rate of 82. TX interval 152. QRS 92. QTc of 395. No acute ST segment elevations or depressions X-rays interpreted by me (1pt min.). @ -None done CT interpreted by me (1pt min.). @ -None done U/S interpreted by me (1pt. min.). @ -None done What testing was considered but not performed or refused? (CT, X-rays, U/S, labs)? Why? @ -None What meds were considered but not given or refused? Why? @ -None Did you discuss the management of the patient with other professionals (professionals i.e. , FLORIN, BIOLOGIST AIDE, lab, RT, psych nurse, social worker assistant, nuclear technologist, teacher, chief data officer, pillowcase cutter)? Give summary @ -[facility] however we do not receive call back Was smoking cessation discussed for >3mins.? @ -No Was critical care preformed (if so, how long)? @ -No Were there social determinants of health that impacted care today? How? (Homelessness, low income, unemployed, alcoholism, drug addiction, transportation, low edu. Level, literacy, decrease access to med. care, intermediate, rehab)? @ -No Was there de-escalation of care discussed even if they declined (Discuss DNR or withdrawal of care, Hospice)? DNR status @ -No What co-morbidities impacted this encounter? (DM, HTN, Smoking, COPD, CAD, Cancer, CVA, ARF, Chemo, Hep., AIDS, mental health diagnosis, sleep apnea, morbid obesity)? @ -Stroke Was patient admitted / discharged? Hospital course, mention meds given and route, prescriptions, significant lab abnormalities, going to OR and other pertinent info. @ -Upon arrival patient seen and evaluated in room 1. Thorough history and physical exam was performed. Patient is concern for stroke however he has no numbness or tingling in his extremities. Patient does have obvious dilated, fixed, white pupil. He reports symptoms for 4 months. Patient is informed that he may have cataract. I did perform pressures. Patient has a pressure of 29 in the left eye. Patient cannot even perceive light. Fluorescein stain demonstrates smooth conjunctival without ulceration. His vision is 20/50 in his right eye. Ultrasound was performed and there is no sign of retinal detachment. I made the patient aware that he likely will never obtain vision in that left eye. I do want him to see an criminal psychologist for possible diagnosis of cataract. [facility]. He is to return for any new or worsening symptoms. Patient agreeable to plan was discharged in stable condition Undiagnosed new problem with uncertain prognosis? @ -Yes Drug Therapy requiring intensive monitoring for toxicity (Heparin, Nitro, Insulin, Cardizem)? @ -No Were any procedures done? @ -No Diagnosis/symptom? 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 @ -Chronic Uncomplicated (without systemic symptoms) or Complicated (systemic symptoms)? @Complicated Side effects of treatment? @ -No Exacerbation, Progression, or Severe Exacerbation? @ -No Poses a threat to life or bodily function? How? (Chest pain, [place], NH, pneumonia, PE, COPD, DKA, ARF, appy, cholecystitis, CVA, Diverticulitis, Homicidal, Suicidal, threat to staff... and all critical care pts) @ -No Disposition Clinical Impression: Visual loss, left eye Disposition: HOME SELF-CARE Condition: Stable Instructions (If sedation given, give patient instructions): Blurred Vision (ED) Additional Instructions: [facility] You need to see the an eye doctor as soon as possible. There is a good chance that you will not get vision back in that left eye. The [facility] should be calling you as we did leave several messages with them but please attempt to contact them yourself Is patient prescribed a controlled substance at d/c from ED?: No Referrals: [facility],Clinic [Primary Care Provider] - 1-2 days Time of Disposition: 17:38
[2023-12-21] MEDS: FLUORESCEIN STRIPS 1 MG STRIP LEFT EYE ONE (17:28)
[2023-12-21] MEDS: PROPARACAINE 0.5% OPHTH DROPS 15 ML BTL LEFT EYE STA (17:28)
== END 2023-12-21 17:52 | disposition home or self-care (01) ==
LOC: EC 14:08
DX: H54.62 Unqualified visual loss, left eye, normal vision right eye (principal); F17.200 Nicotine dependence, unspecified, uncomplicated; Z86.73 Personal history of transient ischemic attack (TIA), and cerebral infarction without residual deficits
CPT/HCPCS: 99283